=== PATIENT | female | born 1965 | race Hispanic/Latino ===

== ENCOUNTER 2018-07-10 11:26 | Outpatient (CLI) | payer BC | END 2018-07-10 11:27 | disposition home or self-care (01) | LOC: BICMAMMO 11:26 | PROVIDERS: ATTEND Family Medicine | DX: Z12.31 Encounter for screening mammogram for malignant neoplasm of breast (principal); N63.20 Unspecified lump in the left breast, unspecified quadrant | CPT/HCPCS: 77063; 77067 ==

== ENCOUNTER 2018-07-18 08:40 | Outpatient (CLI) | payer BC ==
--- NOTE | 2018-07-18 10:10 | ULT ---
LEFT BREAST ULTRASOUND: History: Abnormal mammogram. FINDINGS: Correlation is made with mammogram of 07-10-18. Sonographic evaluation of the upper outer region of the left breast demonstrates multiple cysts, the largest measuring 2.2 cm at the 12 o'clock position corresponding to the mammographic finding. IMPRESSION: BIRADS category 2 - benign findings. Return to annual mammographic screening. POS: OFF
== END 2018-07-18 08:41 | disposition home or self-care (01) ==
LOC: BICULT 08:40
PROVIDERS: ATTEND Family Medicine
DX: R92.8 Other abnormal and inconclusive findings on diagnostic imaging of breast (principal)